=== PATIENT | male | born 1940 | race Caucasian/White ===

== ENCOUNTER 2016-12-07 04:45 | Inpatient (IN) ==
[2016-12-01 08:50] LABS: MANUAL DIFF NEEDED? NO; URINE MICRO REVIEW NEEDED? NO; URINE SOURCE CLEAN CATCH
[2016-12-01 08:55] LABS: BASO% 0.3 % (0.0-0.8); EOS# 0.22 X1000 (0.0-0.7); EOS% 3.2 % (0.0-10.0); HEMATOCRIT 39.2 % (42.0-52.0); HEMOGLOBIN 13.7 g/dL (14.0-18.0); IMM GRAN# 0.03 X1000 (0.0-0.04); IMM GRAN% 0.4 % (0.0-0.5); LYMPH# 1.73 X1000 (1.2-3.4); LYMPH% 24.9 % (20.5-51.1); MCH 32.2 PG (27-31); MCHC 34.9 g/dL (33-37); MCV 92.2 FL (81-99); MONO# 0.57 X1000 (0.11-0.59); MONO% 8.2 % (1.7-9.3); MPV 10.3 FL (7.4-10.4); PLT 195 X1000 (130-400); RBC 4.25 XMIL (4.7-6.1)
[2016-12-01 08:57] LABS: BILIRUBIN URINE NEGATIVE (NEGATIVE); BLOOD URINE NEGATIVE (NEGATIVE); COLOR YELLOW; GLUCOSE URINE NEGATIVE (NEGATIVE); LEUKOCYTES URINE NEGATIVE (NEGATIVE); NITRITE URINE NEGATIVE (NEGATIVE); PROTEIN URINE 70 mg/dL (NEGATIVE); SP GRAVITY URINE 1.014; TURBIDITY URINE CLEAR (CLEAR); UROBILINOGEN URINE NORMAL (NORMAL)
[2016-12-01 08:58] LABS: UR EPITHELIAL CELLS <10 /HPF (<10); URINE BACTERIA NEGATIVE /HPF; URINE RBC <10 /HPF (<10); URINE WBC <10 /HPF (<10)
[2016-12-01 09:09] LABS: INR 0.97; PROTIME 10.2 Seconds (9.2-11.7); PTT 26.9 Seconds (22.0-36.0)
[2016-12-01 09:31] LABS: CALCIUM 9.1 mg/dL (8.8-10.2); POTASSIUM 3.8 mmol/L (3.5-5.1)
--- NOTE | 2016-12-01 09:35 | EKG Report ---
Test Performed on : 12/01/2016 08:37:13 AM Test Reason : JOINT CAMP Blood Pressure : / mmHG Vent. Rate : 053 BPM Atrial Rate : 053 BPM P-R Int : 224 ms QRS Dur : 138 ms QT Int : 468 ms P-R-T Axes : 046 -34 130 degrees QTc Int : 439 ms Sinus bradycardia. with 1st degree AV block. Left axis deviation Left ventricular hypertrophy with QRS widening and repolarization abnormality Cannot rule out Septal infarct , age undetermined Nonspecific ST and T wave abnormality Abnormal ECG No previous ECGs available Confirmed by Moose Berger MD ([id number]) on 12/01/2016 8:32:06 PM
[2016-12-07] MEDS ORDERED: ATIVAN PO PRN (07:03)
[2016-12-07] MEDS ORDERED: VERSED ONE (07:25)
[2016-12-07] MEDS ORDERED: FENTANYL ONE (07:25)
[2016-12-07] MEDS ORDERED: PEPCID ONE (07:41)
[2016-12-07] MEDS ORDERED: LYRICA ONE (07:41)
[2016-12-07] MEDS ORDERED: COLACE ONE (07:41)
[2016-12-07] MEDS ORDERED: REGLAN ONE (07:41)
[2016-12-07] MEDS ORDERED: LR 1,000 ML ONE (07:42)
[2016-12-07] MEDS ORDERED: CELEBREX ONE (07:42)
[2016-12-07] MEDS ORDERED: KEFZOL 2 GM/D5W 0 GM/0 ML IVPB ONE (07:42)
[2016-12-07] MEDS ORDERED: MARCAINE 0.25% PF ONE (08:14)
[2016-12-07] MEDS ORDERED: SODIUM CHLORIDE 0.9% ONE (08:14)
[2016-12-07] MEDS ORDERED: CYKLOKAPRON 1,000 MG/NS 1,000 MG/100 ML IVPB ONE ×2 (08:14→09:06)
[2016-12-07] MEDS ORDERED: DURAMORPH ONE (08:14)
[2016-12-07] MEDS ORDERED: TORADOL ONE (08:14)
[2016-12-07] MEDS ORDERED: EXPAREL 1.3% ONE (08:15)
[2016-12-07] MEDS ORDERED: NEOSPORIN G.U. IRRIGANT ONE (08:15)
[2016-12-07] MEDS ORDERED: DIPRIVAN 1% 1,000 MG/100 ML BOTTLE ONE (08:16)
[2016-12-07] MEDS ORDERED: VANCOMYCIN 1 GM/NS 1 GM/250 ML IVPB ONE (08:54)
[2016-12-07] MEDS ORDERED: GLUCOTROL XL PO SCH (09:00)
[2016-12-07] MEDS ORDERED: VANCOMYCIN ONE (09:06)
[2016-12-07] MEDS ORDERED: ZOFRAN ONE (09:16)
[2016-12-07] MEDS ORDERED: DECADRON ONE (09:16)
[2016-12-07] MEDS ORDERED: OFIRMEV 1000 MG/ISOTONIC SOLN 1,000 MG/100 ML BOTTLE ONE (09:16)
[2016-12-07 11:07] LABS: URINE MICRO REVIEW NEEDED? NO; URINE SOURCE CATH
[2016-12-07] MEDS ORDERED: NS 1,000 ML ONE (11:07)
[2016-12-07 11:15] LABS: BILIRUBIN URINE NEGATIVE (NEGATIVE); BLOOD URINE NEGATIVE (NEGATIVE); COLOR YELLOW; GLUCOSE URINE NEGATIVE (NEGATIVE); LEUKOCYTES URINE NEGATIVE (NEGATIVE); NITRITE URINE NEGATIVE (NEGATIVE); PH URINE 5.5; PROTEIN URINE 100 mg/dL (NEGATIVE); SP GRAVITY URINE 1.016; TURBIDITY URINE CLEAR (CLEAR); UROBILINOGEN URINE NORMAL (NORMAL)
--- NOTE | 2016-12-07 11:15 | OPERATIVE NOTE ---
PROCEDURE DATE: 12/07/2016 PREOPERATIVE DIAGNOSIS: Degenerative joint disease, right knee. POSTOPERATIVE DIAGNOSIS: Degenerative joint disease, right knee. PROCEDURE: Right total knee replacement. SURGEON: Carmina Soriano MD. FINISHER CARD TENDER: Sawyer Agustin. ANESTHESIA: Spinal. COMPLICATIONS: None. PROCEDURE IN DETAIL: A 76-year-old male presents for right knee replacement. Risks, benefits, and no guarantees were discussed, and he is willing to proceed. He was taken to the operating room and satisfactory spinal anesthesia obtained. The right leg was prepped and draped in usual sterile fashion. A time-out was taken to confirm operative site, procedure, and patient. The leg was wrapped with an Esmarch. Tourniquet inflated to 350 mmHg. A midline incision was made over the front of the knee followed by a quad tendon sparing arthrotomy. The patella was everted and resurfaced with freehand technique and subluxed laterally. The knee was flexed. An intramedullary hole made in the distal femur and the distal femoral cutting block secured in 5 degrees of valgus. An additional 2 mm was taken off the distal femur for a 10 degree flexion contracture. The distal femur was sized to a Quosis size 8 femoral component. The 4 in 1 block was secured and the anterior, posterior, and chamfer cuts sequentially made. Any osteophytes were debrided about the femur. The PCL was retained. The knee was flexed and a PCL retractor placed behind the tibia to protect the PCL and neurovascular bundle. The tibial cutting block was secured and the tibial resection made. Flexion and extension gaps were noted to be slightly tight. An additional 2 mm taken off the tibia with good finishing cut with good stabilization of the flexion and extension gaps. The tibia was sized to a size 8 tibial tray. Trial reduction was performed with a size 8 tibial tray, a size 8 cruciate retaining femoral component, and a 5 mm poly. Slight tightness medially was noted. A medial release and osteophyte debridement corrected the balance. 6 mm spacer then revealed good extension and flexion and soft tissue balance. The patella was sized to a 41 medialized dome patella. The drill paddle used to prepare for the patellar implant and the femoral lugs. Afterwards, the trial components were removed and the bony surfaces thoroughly irrigated with pulsatile lavage and then dried. Cement with a gram of vancomycin was utilized to cement the size 8 rotating platform tibial tray, a size 8 right cruciate-retaining femoral component, and a 41 medialized dome patella onto the joint surfaces. After curing of the joint, repeat trialing with poly was undertaken with good confirmation with the 6 mm rotating platform poly. The joint capsule was injected with Exparel for pain management and Hemovac drain placed. An 8 mm rotating platform poly was inserted in the tibial tray and the knee reduced. Final range of motion was 0-120 degrees with midline patellar tracking. The arthrotomy was copiously irrigated and then closed over the drain with #1 Vicryl in the arthrotomy, 2-0 Vicryl in the subcutaneous, and skin allison on the skin edges. Sterile dressings completed the closure and the patient was recovered from anesthesia and transferred to the recovery room in stable condition. No intraoperative complications were noted. Instrument count and sponge count was correct at the time of closure. cc: Alec Soriano MD
[2016-12-07 11:17] LABS: UR EPITHELIAL CELLS <10 /HPF (<10); URINE BACTERIA NEGATIVE /HPF; URINE RBC <10 /HPF (<10); URINE WBC <10 /HPF (<10)
--- NOTE | 2016-12-07 11:44 | Diag Imaging Result Doc PS360 ---
EXAM: KNEE 1-2 VIEWS-RIGHT HISTORY: Right total knee TECHNIQUE: Portable AP, two views COMPARISON: None. FINDINGS: There has been recent orthopedic replacement of the right knee. There are anterior skin allison and a superior surgical drain. No fracture. No dislocation. IMPRESSION: Good alignment to the femoral and tibial components following recent orthopedic replacement of the right knee. Electronically signed by Flavio Reynolds 12/07/2016 11:41 AM
[2016-12-07] MEDS: ZYLOPRIM PO SCH (11:52)
[2016-12-07] MEDS: GLUCOPHAGE PO SCH ×2 (11:52→17:33)
[2016-12-07] MEDS: ZIAC 5/6.25 MG PO SCH (11:52)
[2016-12-07] MEDS: COZAAR PO SCH (11:53)
[2016-12-07] MEDS: PROTONIX PO SCH (11:53)
[2016-12-07] MEDS ORDERED: MORPHINE IV PRN (13:15)
[2016-12-07] MEDS ORDERED: MILK OF MAGNESIA PO PRN (13:15)
[2016-12-07] MEDS ORDERED: ZOFRAN IV PRN (13:15)
[2016-12-07] MEDS ORDERED: AMBIEN PO PRN (13:15)
[2016-12-07] MEDS: NS 1,000 ML IV SCH (14:05)
[2016-12-07] MEDS: TYLENOL PO SCH ×2 (14:28→20:11)
[2016-12-07] MEDS: ULTRAM PO SCH ×2 (14:28→20:12)
--- NOTE | 2016-12-07 16:09 | PROGRESS NOTE ---
DATE: 12/07/2016 SUBJECTIVE: Mr. Gross is seen status post total knee replacement. He is comfortable at the present time. Vital signs are stable. Bandage is clean and dry. He appears to be motor and sensory intact distally with good capillary refill. ASSESSMENT: At the present time, he is in stable condition. cc: MD Lula Harris MD
[2016-12-07 16:13] LABS: ALBUMIN 3.9 g/dL (3.5-5.0); CALCIUM 8.2 mg/dL (8.8-10.2); POTASSIUM 4.8 mmol/L (3.5-5.1); TOTAL BILIRUBIN 0.35 mg/dL (0.20-1.00)
[2016-12-07] MEDS: OXY IR PO PRN ×2 (16:21→17:32)
[2016-12-07] MEDS: HUMALOG SUBQ SCH ×2 (16:22→20:14)
--- NOTE | 2016-12-07 17:18 | CONSULTATION ---
DATE OF CONSULTATION: 12/07/2016 CONSULTING PHYSICIAN: Dr. Soriano with orthopedic surgery. REASON FOR CONSULTATION: Medical management. PRIMARY CARE PHYSICIAN: Dr. Hans Mireles. DEPUTY ATTORNEY GENERAL: Dr. Martines. HISTORY OF PRESENT ILLNESS: Mr. Gross is a 76-year-old male with a history of CAD, hypertension, hyperlipidemia, and diabetes mellitus, who is status post right knee total arthroplasty. He is currently resting in bed comfortably without distress noted. Prior to surgery he had no complaints of chest pain, shortness of breath, orthopnea, or lower extremity edema. He had preoperative echocardiogram and stress testing done. Echocardiogram did show some fairly significant wall-motion abnormalities consistent with coronary disease but preserved EF. Stress testing again showed a fixed defect in anterior apical wall as well as in the inferior wall. We do have labs from 12/01/2016 which showed some anemia and a creatinine of 1.3, baseline creatinine is unknown.We have been asked to follow along for medical management. PAST MEDICAL HISTORY: 1. CAD. 2. Hypertension. 3. Diabetes mellitus. 4. GERD. 5. Gout. 6. Hyperlipidemia. 7. CAD. PAST SURGICAL HISTORY: Deviated septum. SOCIAL HISTORY: Patient denies tobacco, alcohol, or drug use. He is . Family is at the bedside. FAMILY HISTORY: Noncontributory. REVIEW OF SYSTEMS: Fourteen-point review of systems obtained and found to be negative with the exception of the HPI. ALLERGIES: Cefixime and propoxyphene. HOME MEDICATIONS: Allopurinol 100 mg daily, aspirin 81 mg daily, bisoprolol hydrochlorothiazide 1 daily, Glucotrol 2.5 mg daily, lansoprazole 30 mg daily, lorazepam 1 mg as needed, Cozaar 50 mg daily, Meloxicam 7.5 mg daily, Glucophage 500 mg p.o. b.i.d., Zocor 40 mg at bedtime, trazodone 100 mg p.o. at bedtime. PHYSICAL EXAMINATION: Vital Signs: Blood pressure is 178/74, heart rate is 58 , respiratory rate is 16, O2 saturation is 99% on room air, temperature is 97.1 degrees. General: This is a elderly male, lying in hospital bed, in no acute distress. Neurologic: Nonfocal. HEENT: Head is atraumatic, normocephalic. His pupils are equal, round, and reactive to light. Oral mucosa is moist. Trachea is midline. No JVD or carotid bruits. Chest: Clear to auscultation bilaterally. Cardiovascular: Bradycardic rate but regular. S1, S2 is noted. GI: Soft, nondistended, nontender. Bowel sounds are positive. Extremities: No edema, clubbing, or cyanosis. Distal neurovascular is intact in both legs. Right knee with occlusive dressings clean , dry, and intact. DIAGNOSTIC DATA: Pending. ASSESSMENT AND PLAN: 1. Status post right total knee arthroplasty: Per Dr. Soriano and his team. Will continue early ambulation, pain control, and incentive spirometry. 2. Renal insufficiency: Unclear what his baseline creatinine is. We are checking CMP now and we will follow his creatinine. He is on quite a bit of nephrotoxic medication including hydrochlorothiazide, Cozaar, meloxicam, Glucophage. He is on light IV fluids and cmp has been ordered. We will go from there. 3. Hypertension: Chronic and stable. Will continue his home medications as is safe for the patient. 4. Diabetes mellitus. Continue fingersticks and pattern blood sugars. We will check a hemoglobin A1c in the morning and manage his PO medications accordingly as he has mild renal dysfunction. 5. Coronary artery disease: Preoperative ischemic testing did not show any acute ischemia. Patient denies any chest pain at this time. We will continue his home medications and monitor. 6. Deep vein thrombosis prophylaxis is provided with Xarelto. Further recommendations to follow. Dictated by YAIMA Ly for Lula Darby MD cc: YAIMA Ly MD Chad McElroy, MD Ashish K. Basu, MD I personally performed a face to face evaluation on this patient. I agree with the assessment and plan as dictated. The patient is currently s/p a right total knee replacement. Will start the patient on sliding scale insulin and monitor the blood glucose AC and bedtime. CARMELA
[2016-12-07] MEDS: ATIVAN PO PRN (20:11)
[2016-12-07] MEDS: COLACE PO SCH (20:11)
[2016-12-07] MEDS: DESYREL PO SCH (20:11)
[2016-12-07] MEDS: CELEBREX PO SCH (20:11)
[2016-12-07] MEDS: ZOCOR PO SCH (20:12)
[2016-12-07] MEDS: LYRICA PO SCH (20:12)
[2016-12-07] MEDS: PERIDEX MT SCH (20:13)
[2016-12-07] MEDS ORDERED: VANCOMYCIN 1 GM/NS 1 GM/250 ML IVPB IV ONE (21:00)
[2016-12-07] MEDS: GLUCOTROL XL PO SCH (22:52)
[2016-12-08] MEDS: NS 1,000 ML IV SCH ×2 (01:00→06:08)
[2016-12-08 05:44] LABS: HEMOGLOBIN A1C 5.9 % (4.8-6.0)
[2016-12-08 05:48] LABS: HEMATOCRIT 26.7 % (42.0-52.0); HEMOGLOBIN 9.2 g/dL (14.0-18.0)
[2016-12-08] MEDS: ULTRAM PO SCH ×4 (06:04→17:59)
[2016-12-08] MEDS: TYLENOL PO SCH ×4 (06:05→18:00)
[2016-12-08] MEDS: XARELTO PO SCH (06:09)
[2016-12-08 06:18] LABS: CALCIUM 7.9 mg/dL (8.8-10.2); POTASSIUM 4.4 mmol/L (3.5-5.1)
[2016-12-08] MEDS: HUMALOG SUBQ SCH ×4 (07:00→21:00)
--- NOTE | 2016-12-08 07:40 | PROGRESS NOTE ---
DATE: 12/08/2016 Mr. Gross was seen today, status post total knee replacement. He did have a drop in his hematocrit but remained stable and asymptomatic. The incisions are clean and dry. There are no signs of active bleeding, infection, or DVT. He wishes to undergo inpatient rehab and will continue his hospital say today, and plan on transfer to rehab when a bed is available, possibly Tuesday. cc: MD Lula Harris MD
[2016-12-08] MEDS: ZIAC 5/6.25 MG PO SCH (09:30)
[2016-12-08] MEDS: LYRICA PO SCH ×2 (09:30→21:57)
[2016-12-08] MEDS: PROTONIX PO SCH (09:30)
[2016-12-08] MEDS: COZAAR PO SCH (09:30)
[2016-12-08] MEDS: CELEBREX PO SCH ×2 (09:30→21:57)
[2016-12-08] MEDS: PERIDEX MT SCH ×2 (09:31→21:57)
[2016-12-08] MEDS: ZYLOPRIM PO SCH (09:31)
[2016-12-08] MEDS: PEPCID PO SCH (09:31)
[2016-12-08] MEDS: GLUCOPHAGE PO SCH ×2 (09:31→18:00)
[2016-12-08] MEDS: COLACE PO SCH ×2 (09:31→21:56)
[2016-12-08] MEDS ORDERED: LACTULOSE PO PRN (11:44)
[2016-12-08] MEDS: OXY IR PO PRN ×3 (13:27→21:56)
[2016-12-08] MEDS: MIRALAX PO SCH ×2 (13:40→21:56)
--- NOTE | 2016-12-08 17:21 | PROGRESS NOTE ---
DATE: 12/08/2016 SUBJECTIVE: The patient is resting comfortably in bed. He states that he wants to get up and walk, using a walker. He does report some constipation. OBJECTIVE: Vital Signs: Temperature 97.8 degrees, blood pressure 123/58, heart rate 68, respirations 20, O2 saturation is 97% on room air. General: This is an elderly male, lying in bed, in no acute distress. Heart: S1, S2. Normal. Regular rate and rhythm. Lungs: Clear to auscultation bilaterally. No wheezing. No rales. No rhonchi. Abdomen: Positive bowel sounds. Soft, nontender, nondistended. Extremities: No edema. No cyanosis. No calf tenderness. Neurologic: The patient is alert and oriented x4. LABS: Hemoglobin 9.2, hematocrit 26. Potassium 4.4, sodium 137. Glucose 184, A1c 5.9. ASSESSMENT AND PLAN: 1. Status post right total knee replacement. Management as per the orthopedic surgeon. 2. Diabetes mellitus type 2. We will continue on sliding scale insulin. 3. Constipation. We will start the patient on scheduled laxative therapy. 4. Hypertension. Controlled. 5. Deep vein thrombosis prophylaxis. The patient is on Xarelto. cc: Lula Darby MD
[2016-12-08] MEDS: ATIVAN PO PRN (21:56)
[2016-12-08] MEDS: ZOCOR PO SCH (21:56)
[2016-12-08] MEDS: GLUCOTROL XL PO SCH (21:57)
[2016-12-08] MEDS: DESYREL PO SCH (21:57)
[2016-12-09] MEDS: ULTRAM PO SCH ×5 (00:03→23:45)
[2016-12-09] MEDS: TYLENOL PO SCH ×5 (00:04→23:45)
[2016-12-09 06:09] LABS: HEMATOCRIT 25.9 % (42.0-52.0); HEMOGLOBIN 8.7 g/dL (14.0-18.0)
[2016-12-09 06:43] LABS: CALCIUM 8.2 mg/dL (8.8-10.2); POTASSIUM 3.9 mmol/L (3.5-5.1)
[2016-12-09] MEDS: XARELTO PO SCH (06:45)
[2016-12-09] MEDS: HUMALOG SUBQ SCH ×4 (07:00→21:50)
[2016-12-09] MEDS ORDERED: DULCOLAX PR PRN (08:29)
[2016-12-09] MEDS: COLACE PO SCH ×2 (09:27→21:49)
[2016-12-09] MEDS: PROTONIX PO SCH (09:27)
[2016-12-09] MEDS: PEPCID PO SCH (09:27)
[2016-12-09] MEDS: LYRICA PO SCH ×2 (09:27→21:51)
[2016-12-09] MEDS: GLUCOPHAGE PO SCH ×2 (09:27→18:03)
[2016-12-09] MEDS: NORVASC PO SCH ×2 (09:27→21:49)
[2016-12-09] MEDS: ZYLOPRIM PO SCH (09:27)
[2016-12-09] MEDS: PERIDEX MT SCH ×2 (09:27→21:49)
[2016-12-09] MEDS: MIRALAX PO SCH ×3 (09:28→21:51)
[2016-12-09] MEDS ORDERED: DULCOLAX PR ONE (10:48)
--- NOTE | 2016-12-09 13:43 | PROGRESS NOTE ---
DATE: 12/09/2016 SUBJECTIVE: The patient is resting comfortably in bed. He does complain of constipation, but otherwise has no other complaints. OBJECTIVE: Vital Signs: Temperature 98.2 degrees, blood pressure 132/60, heart rate 62, respirations 18, O2 saturations 100% on room air. General: This is an elderly male, lying in bed, in no acute distress. Heart: S1, S2 normal. Regular rate and rhythm. Lungs: Clear to auscultation bilaterally. No crackles. No rales. Abdomen: Positive bowel sounds. Soft, nontender, nondistended. Extremities: No edema. No cyanosis. Neurologic: The patient is alert and oriented x4. LABS: Reviewed. ASSESSMENT AND PLAN: 1. Status post right total knee replacement. Management as per the orthopedic surgeon. 2. Constipation. Will give the patient a dose of Dulcolax. Continue on lactulose and MiraLAX. 3. Hypertension. Controlled. 4. Chronic kidney disease. Will hold the Cozaar. We will monitor the patient's renal function closely. 5. Diabetes mellitus type 2. Continue on sliding scale insulin. 6. Deep vein thrombosis prophylaxis. The patient is on Xarelto. cc: Lula Darby MD
--- NOTE | 2016-12-09 15:15 | PROGRESS NOTE ---
DATE: 12/09/2016 SUBJECTIVE DATA: The patient is sitting on the side of bed with physical therapy. He states he is having some pain but is fairly well controlled. Overall, he states he is doing well and is ready to transition to inpatient rehab. OBJECTIVE DATA: Right lower extremity exam: Incisions are clean, dry, and intact. There is no erythema or drainage noted from the incision. He already full extension of the knee. Physical therapy reports that he already has 90 degrees of flexion or more. He does have some minor bleeding from the drain site. He also has a fair amount of edema to the knee. ASSESSMENT: Status post right total knee replacement. PLAN: Plan is for Mr. Gross to transfer to inpatient rehab tomorrow. We will plan on discharging him tomorrow as long as it is okay with Dr. Darby. He is to continue to work on mobilization of the knee. So far, he has been working well with physical therapy. We will see him in the morning. Dictated by YAIMA Richards for Alec Soriano MD cc: YAIMA Richards MD Katherine Takundwa, MD [facility] SYSTEM[facility]are[facility]
[2016-12-09] MEDS: ZOCOR PO SCH (21:48)
[2016-12-09] MEDS: GLUCOTROL XL PO SCH (21:48)
[2016-12-09] MEDS: DESYREL PO SCH (21:49)
[2016-12-10] MEDS: OXY IR PO PRN (04:29)
[2016-12-10 05:27] LABS: HEMATOCRIT 24.3 % (42.0-52.0); HEMOGLOBIN 8.3 g/dL (14.0-18.0)
[2016-12-10 05:41] LABS: CALCIUM 8.4 mg/dL (8.8-10.2); POTASSIUM 4.2 mmol/L (3.5-5.1)
[2016-12-10] MEDS: XARELTO PO SCH (05:57)
[2016-12-10] MEDS: ULTRAM PO SCH ×2 (05:57→11:25)
[2016-12-10] MEDS: TYLENOL PO SCH ×2 (05:57→11:25)
[2016-12-10] MEDS: HUMALOG SUBQ SCH (06:01)
[2016-12-10 07:52] VITALS: BP 153/69
[2016-12-10] MEDS: MIRALAX PO SCH (09:41)
[2016-12-10] MEDS: PEPCID PO SCH (09:41)
[2016-12-10] MEDS: PROTONIX PO SCH (09:41)
[2016-12-10] MEDS: COLACE PO SCH (09:41)
[2016-12-10] MEDS: LYRICA PO SCH (09:41)
[2016-12-10] MEDS: ZYLOPRIM PO SCH (09:41)
[2016-12-10] MEDS: GLUCOPHAGE PO SCH (09:41)
[2016-12-10] MEDS: NORVASC PO SCH (09:41)
--- NOTE | 2016-12-10 10:14 | DISCHARGE SUMMARY ---
ADMISSION DATE: 12/07/2016 DISCHARGE DATE: 12/10/2016 ADMITTING DIAGNOSES: Degenerative joint disease of the right knee. ADDITIONAL DIAGNOSES: 1. History of hypertension. 2. Ojw-ogbkzix-zmfeguxkh diabetes. 3. Coronary artery disease. DISCHARGE DIAGNOSES: 1. Degenerative joint disease of the right knee. 2. History of hypertension. 3. Usq-ozpadey-fvkgxqora diabetes. 4. Coronary artery disease. 5. Acute blood loss anemia. ADMITTING HISTORY AND HOSPITAL COURSE: This 76-year-old male was admitted to the hospital for knee replacement. Postoperatively, he underwent knee replacement with steady progress. He did have a drop in his hematocrit due to acute blood loss anemia. Recently had some discharge from the drain. Examination of the leg revealed no evidence of Homans sign or DVT but he did have some persistent bleeding. His Xarelto was discontinued and he was placed on a baby aspirin a day for DVT prophylaxis due to over anticoagulation. At the present time, he is afebrile with stable vital signs. The hematocrit is 24.3 and he is minimally asymptomatic. He is transferred to rehab today for continued convalescent care and strength training. He will return to see me after completion of the rehab. He is to return in the interim for any worsening signs or symptoms. He can be mobilized full weightbearing in therapy. Bethanie can be removed in 10 days from today. He is to follow up with me upon discharge. DISCHARGE MEDICATIONS: Include 81 mg aspirin a day. Allopurinol 100 mg a day. Continuation of his home medicines consisting of bisoprolol hydrochlorothiazide 5/6.25, Glipizide ER 2.5 mg, lansoprazole 30 mg, lorazepam 2 mg p.r.n., losartan potassium 100 mg, Mobic 15 mg daily, metformin extended release 500 mg, ofloxacin ear drops p.r.n., simvastatin 40 mg, Singulair tablet 10 mg, trazodone 100 mg and Randolph 10 1-2 every 4-6 hours p.r.n. pain. cc: MD Lula Harris MD
--- NOTE | 2016-12-10 10:59 | Diag Imaging Result Doc PS360 ---
EXAM: CHEST-1 VIEW INDICATION: rehab TECHNIQUE: One view COMPARISON: None. FINDINGS: Inspiration is suboptimal. There is a calcified granuloma at the right upper lung zone. The lungs are grossly clear, otherwise. There is no discrete pleural fluid collection or pneumothorax. The cardiomediastinal silhouette and central vasculature are grossly unremarkable for AP technique. IMPRESSION: No evidence of acute pathology by plain radiograph. Electronically signed by Alec Green 12/10/2016 10:56 AM
== END 2016-12-10 11:36 | disposition swing bed (61) ==
LOC: SURHOLD 04:45 → 4N 09:14
PROVIDERS: ADMIT Internal Medicine; ATTEND Orthopaedic Surgery Adult Reconstructive Orthopaedic Surgery